=== PATIENT | male | born 1975 | race Two or more races ===

== ENCOUNTER 2020-09-25 20:21 | Emergency (ER) | payer OTHER ==
[~2020-09-25] VITALS: Ht 170.2 cm; Wt 77.9 kg
[2020-09-25] MEDS ORDERED: HYDROcodone/APAP 5/325 TABLET ONE (21:28)
[2020-09-25] MEDS ORDERED: HYDROcodone/APAP 5/325 TABLET PO ONE (21:30)
[2020-09-25] MEDS ORDERED: BACITRACIN OINT 500U/GM, 15 GM TP SCH (22:00)
[2020-09-25 22:22] VITALS: BP 129/83
== END 2020-09-25 22:46 | disposition home or self-care (01) ==
LOC: ED 21:00
DX: S42.021A Displaced fracture of shaft of right clavicle, initial encounter for closed fracture (principal); S20.311A Abrasion of right front wall of thorax, initial encounter; S80.211A Abrasion, right knee, initial encounter; S40.211A Abrasion of right shoulder, initial encounter; V00.131A Fall from skateboard, initial encounter; Y93.51 Activity, roller skating (inline) and skateboarding; Y92.009 Unspecified place in unspecified non-institutional (private) residence as the place of occurrence of the external cause; Y99.8 Other external cause status
CPT/HCPCS: 99283